=== PATIENT | male | born 1960 | race Caucasian/White ===

== ENCOUNTER 2025-01-01 19:13 | Emergency (ER) | payer OTHER, SELFPAY ==
[2025-01-01 19:21] VITALS: BP 158/96; PULSE 78; RESP 16; TEMP 36.4; O2SAT 96; BMI 28.8
[2025-01-01 23:44] VITALS: BP 143/91; PULSE 70; RESP 16; TEMP 36.7; O2SAT 98
--- NOTE | 2025-01-02 02:48 | ED_ITS ---
HPI - Abdominal Pain General Chief Complaint: Abdominal Pain Stated Complaint: lower left quad px Time Seen by Provider: 01/02/25 02:48 Source: family Mode of arrival: Ambulatory Limitations: no limitations History of Present Illness HPI narrative: 64-year-old male history of BPH, prior substance abuse last use was July 2024. Patient presents with complaint of left-sided abdominal pain he states more in the front started in the last day or so. Has been intermittent but will last for about 5-10 minutes BP quite painful the sort of the slowly improved. No fevers or chills. No chest pain. Has felt a little short of breath. No cough cold or congestion. Has had some nausea no vomiting. No diarrhea or constipation, no black or bloody stools. No dysuria, he does have some difficulty normally stopping and starting and has noted some frequency over the past several days. He denies any back or flank pain. No rash or skin changes. States movement does not seem to make it worse. Patient states he was on tamsulosin, takes [place] Reg's Wort. Had prior cholecystectomy, prior surgery in his 20s for GERD with the mesh and developed a hernia that had to be repaired. Denies any allergies to medications does have an allergy to bee stings. Uses tobacco, occasional alcohol has used cocaine in the past was sober for 5 years but then relapsed and has been sober since July. Review of Systems Review of Systems ROS Unobtainable: All systems reviewed & are unremarkable except as noted in HPI and below Patient History Social History Smoking Status: Never smoker Smoking Status: Never smoker Exam Narrative Exam Narrative: GENERAL: Alert and oriented x three, male in mild distress HEENT: Head normocephalic, atraumatic, EOMI, pupils reactive, face symmetric, moist mucous membranes NECK: Supple, full range of motion CARDIOVASCULAR: Regular rate and rhythm without murmurs, rubs or gallops. RESPIRATORY: Breath sounds equal bilaterally, no wheezes rales or rhonchi. ABDOMEN: Soft, left-sided tenderness little bit more left upper quadrant than left lower. No right-sided tenderness. Nondistended. Normoactive bowel sounds all 4 quadrants. No guarding or rebound, rigidity, no mass : No CVA tenderness bilaterally EXTREMITIES: Normal range of motion, no clubbing or edema. Neurovascularly intact NEUROLOGICAL: Cranial nerves II through XII grossly intact. Moving all extremities SKIN: Warm, dry, no petechiae, no rashes or lesions on the torso Initial Vital Signs Initial Vital Signs: Vital Signs Temperature 97.6 F 01/01/25 19:21 Pulse Rate 78 01/01/25 19:21 Respiratory Rate 16 01/01/25 19:21 Blood Pressure 158/96 H 01/01/25 19:21 Pulse Oximetry 96 01/01/25 19:21 Oxygen Delivery Method Room Air 01/01/25 19:21 Course Orders Ordered: ED Orders 01/02/25 02:36 Complete Blood Count AUTO DIFF Stat Comprehensive Metabolic Panel Stat Lipase Stat 01/02/25 03:34 CT abdomen pelvis w con Stat Discontinued Medications Hydrocodone Bitart/Acetaminophen (Hydrocodone/Acet 5/325 Prepack) 1 bottle MISC DIRECTED ONE Stop: 01/02/25 05:01 Last Admin: 01/02/25 05:10 Dose: 1 bottle Documented By: RAUL Ketorolac Tromethamine (Ketorolac 30 Mg/Ml Vial) 15 mg IV NOW ONE Stop: 01/02/25 03:35 Last Admin: 01/02/25 03:38 Dose: 15 mg Documented By: RAUL Morphine Sulfate (Morphine 4 Mg/Ml Inj) 4 mg IV NOW ONE Stop: 01/02/25 05:01 Last Admin: 01/02/25 05:10 Dose: 4 mg Documented By: RAUL Vital Signs Vital signs: Vital Signs - 8 hr 01/01/25 23:44 01/02/25 02:50 01/02/25 04:01 Temperature 98.0 F Pulse Rate 70 58 L 57 L Respiratory Rate 16 16 14 Blood Pressure 143/91 H 132/85 157/84 H Pulse Oximetry 98 97 100 Oxygen Delivery Method Room Air Room Air Room Air 01/02/25 04:53 Temperature Pulse Rate 54 L Respiratory Rate 14 Blood Pressure 129/61 Pulse Oximetry 100 Oxygen Delivery Method Room Air MDM - Abdominal Pain Lab Data 01/02/25 02:36 01/02/25 02:36 Labs: Lab Results 01/02/25 Range/Units 02:36 WBC 8.1 (4.5-11.0) X10^3/uL RBC 5.43 (4.5-5.9) X10^6/uL Hgb 15.7 (13.5-17.5) g/dL Hct 46.7 (41-53) % MCV 86.0 (80-100) fL MCH 28.8 (26-34) PG MCHC 33.5 (30-36) % RDW 15.3 H (11.6-14.8) % Plt Count 133 L (150-400) X10^3/uL Neut % (Auto) 50.2 (50-75) % Lymph % (Auto) 29.6 (25-40) % [place] % (Auto) 12.5 (3-14) % Eos % (Auto) 7.1 H (2-4) % Baso % (Auto) 0.6 (0-2) % Neut # (Auto) 4100 (2927-9424) /uL Lymph # (Auto) 2400 (5158-5524) /uL [place] # (Auto) 1000 H (0-900) /uL Eos # (Auto) 600 H (0-450) /uL Baso # (Auto) 100 (0-100) /uL Sodium 139 (137-145) mmol/L Potassium 4.0 (3.4-5.1) mmol/L Chloride 110 H (98-107) mmol/L Carbon Dioxide 20 L (22-32) mmol/L BUN 27 H (9-20) mg/dL Creatinine 1.04 (0.66-1.25) mg/dL Estimated GFR > 60 (>60) mL/min BUN/Creatinine Ratio 26.0 H (6-22) Glucose 93 (80-110) mg/dL Calcium 9.2 (8.4-10.2) mg/dL Total Bilirubin 0.7 (0.2-1.3) mg/dL AST 35 (17-59) IU/L ALT 30 (<50) IU/L Alkaline Phosphatase 67 (38-126) U/L Total Protein 7.3 (6.3-8.2) g/dL Albumin 4.2 (3.5-5.0) g/dL Globulin 3.1 (1.7-4.1) g/dL Albumin/Globulin Ratio 1.4 (1.0-2.8) Lipase 111 (23-300) U/L Point of care testing: Urine Dip Bedside Urine Glucose Negative Bedside Urine Bilirubin - Negative Bedside Urine Ketone - Negative Urine Specific [place] 1.030 Bedside Urine Occult Blood - Negative Bedside Urine pH 6.0 Bedside Urine Protein - Negative Bedside Urine Urobilinogen - Negative Bedside Urine Nitrite - Negative Bedside Urine Leukocytes - Negative Esterase MDM Narrative Medical decision making narrative: White count 8.1 hemoglobin 15.7 platelets of 133. Chloride 110 CO2 is 20 BUN 27 creatinine is 1.04 glucose is 93 LFTs are negative lipase is 111. Sodium is 139 with a potassium of 4. poc urine is negative. CT abdomen/pelvis shows ventral hernia containing a loop of unobstructed transverse colon, hepatic cyst versus hemangioma postoperative changes small hernia likely. Still exam otherwise unremarkable. There is a 1.6 cm circumcised hypodense lesion in the inferior aspect right lobe of the liver. Patient is quite tender on exam we will obtain CT abdomen pelvis to evaluate for diverticulitis, versus kidney stone versus other intra-abdominal process. Patient was given Toradol. On recheck patient's pain is improved but not totally resolve. He notes pain now feels in his right lower quadrant was before in the left lateral area. Rreviewed his CT findings in their entirety. Was found to have ventral hernia containing a loop of nonobstructed transverse colon, hepatic cyst versus hemangioma postoperative changes. Patient does not have any tenderness over the area and is soft Discussed with patient we will give referral to follow up with General surgery but felt appropriate for discharge. He does request an additional dose of pain medication. Discharge Plan Departure Patient Disposition: Home Clinical Impression: Abdominal pain, Ventral hernia, Hepatic cyst Instructions: Abdominal Hernia Activity Restrictions/Additional Instructions: Please follow up with General surgery you have a ventral hernia, this is not the area that you are tender at today so do not believe this is the source of your symptoms but these can become problematic and even become obstructed it is recommended to follow up for repair, contact is included below. There has also a potential small hiatal hernia on your imaging. You were also noted to have either hepatic cyst versus hemangioma in your liver. You can take pain medication as prescribed, 1 tablet every 6 hours. This medication can make you sleepy do not drive, perform hazardous activities or make any major decisions while taking it. This medication will make you constipated please take a stool softener once to twice daily until stools are soft and regular. Please return for fevers, new or worsening abdominal back or flank pain, persistent vomiting, black or bloody stools, lightheadedness or passing out or other new or concerning changes. Referrals: Mic Middleton MD [Physician] - Miscellaneous,MD Ricky [Primary Care Provider] - Stand Alone Forms: Patient Portal/API/Survey
[2025-01-02 02:50] VITALS: BP 132/85; PULSE 58; RESP 16; O2SAT 97
[2025-01-02 03:01] LABS: Add Manual Diff / Slide Review NO; Basophils Absolute Auto 100 /uL (0-100); Basophils Percent Auto 0.6 % (0-2); Eosinophils Absolute Auto 600 /uL (0-450); Eosinophils Percent Auto 7.1 % (2-4); Hematocrit 46.7 % (41-53); Hemoglobin 15.7 g/dL (13.5-17.5); Lymphocytes Absolute Auto 2400 /uL (1100-4500); Lymphocytes Percent Auto 29.6 % (25-40); Mean Corpuscular HGB Conc 33.5 % (30-36); Mean Corpuscular Hemoglobin 28.8 PG (26-34); Monocytes Absolute Auto 1000 /uL (0-900); Monocytes Percent Auto 12.5 % (3-14); Neutrophils Absolute Auto 4100 /uL (1500-7000); Neutrophils Percent Auto 50.2 % (50-75); Platelet Count 133 X10^3/uL (150-400); Red Blood Cell Count 5.43 X10^6/uL (4.5-5.9); Red Cell Distribution Width 15.3 % (11.6-14.8); White Blood Cell Count 8.1 X10^3/uL (4.5-11.0)
[2025-01-02 03:04] LABS: Alanine Aminotransferase 30 IU/L (<50); Albumin 4.2 g/dL (3.5-5.0); Albumin Globulin Ratio 1.4 (1.0-2.8); Alkaline Phosphatase 67 U/L (38-126); Aspartate Aminotransferase 35 IU/L (17-59); Bilirubin Total 0.7 mg/dL (0.2-1.3); Blood Urea Nitrogen 27 mg/dL (9-20); Calcium 9.2 mg/dL (8.4-10.2); Carbon Dioxide 20 mmol/L (22-32); Chloride 110 mmol/L (98-107); Estimated Glomerular Filt Rate > 60 mL/min (>60); Globulin 3.1 g/dL (1.7-4.1); Glucose 93 mg/dL (80-110); HEMOLYSIS < 15 (0-50); Lipase 111 U/L (23-300); Sodium 139 mmol/L (137-145); Total Protein 7.3 g/dL (6.3-8.2)
--- NOTE | 2025-01-02 03:34 | DI.CT.S_ITS ---
PROCEDURE: CT ABDOMEN PELVIS W CON INDICATIONS: Lsided abd pain x 2 days. TECHNIQUE: After the administration of intravenous contrast, axial sections acquired from the lung bases to the pubic symphysis. Coronal and sagittal reformats were performed. For radiation dose reduction, the following was used: automated exposure control, adjustment of mA and/or kV according to patient size. COMPARISON: None. FINDINGS: Image quality: Diagnostic. Lower Chest: No significant findings. ABDOMEN: Liver: Diffuse fatty liver infiltration is noted. Within the right liver, there is a water density focus seen measuring up to 17 mm. Gallbladder: Not seen. Biliary ducts: No biliary dilation. Pancreas: No ductal dilation. Spleen: Size is within normal limits. Adrenal Glands: No adrenal nodules. Kidneys and Ureters: No hydronephrosis. No solid mass. No complex renal cystic lesion which requires follow up. Bowel and peritoneum: Left upper quadrant postoperative change is seen. In this patient with this given history, scrutiny is given to left-sided colon. No significant abnormality can be seen. No significant diverticula formation can be seen. No significant colonic abnormality is seen. No dilated loops of small bowel are seen. Ventral Wall: There is an epigastric hernia seen, containing fat and nondilated transverse colon. Abdominal Nodes: No retroperitoneal or mesenteric adenopathy by size criteria. Vessels: Aorta and inferior vena cava are normal in size. PELVIS: Pelvic Organs: Unremarkable. Bladder: No bladder wall thickening, accounting for underdistention. Pelvic Nodes: No enlarged lymph nodes. Miscellaneous: No inguinal hernias are seen. Bones: No aggressive osseous abnormality. There is focal lower lumbar spine degenerative change IMPRESSION: Epigastric hernia seen, containing fat and nondilated transverse colon. No significant additional colonic abnormality is seen. Left upper quadrant postoperative change. Additional findings: Fatty liver infiltration Right liver cyst versus hemangioma Apparent prior cholecystectomy, with the gallbladder not seen Note: No significant discrepancy from the preliminary report. Dictated by: Sunday Rocha M.D. on 01/02/2025 at 10:10 Approved by: Sunday Rocha M.D. on 01/02/2025 at 10:13
[2025-01-02] MEDS: KETOROLAC 30 MG/ML VIAL 15 MG IV (03:38)
--- NOTE | 2025-01-02 03:52 | PC.NURSE ---
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
[2025-01-02 04:01] VITALS: BP 157/84; PULSE 57; RESP 14; O2SAT 100
[2025-01-02 04:53] VITALS: BP 129/61; PULSE 54; RESP 14; O2SAT 100
[2025-01-02] MEDS: HYDROCODONE/ACET 5/325 PREPACK 1 BOTTLE MISC (05:10)
[2025-01-02] MEDS: MORPHINE 4 MG/ML INJ IV (05:10)
== END 2025-01-02 05:53 | disposition home or self-care (01) ==
PROVIDERS: Emergency Provider Emergency Medicine
DX: K43.9 Ventral hernia without obstruction or gangrene (principal); K76.89 Other specified diseases of liver; R10.32 Left lower quadrant pain
CPT/HCPCS: 36415; 74177; 80053; 81003; 83690; 85025; 96374; 96375; 99284; J1885; J2270; Q9967